=== PATIENT | male | born 2000 | race Caucasian/White ===

== ENCOUNTER 2024-07-02 08:26 | Emergency (ER) | payer OTHER, SELFPAY ==
[2024-07-02 08:33] VITALS: BP 115/78; PULSE 69; TEMP 36.5; O2SAT 98; BMI 19.5
--- NOTE | 2024-07-02 08:46 | CT_ITS ---
[address] [address] Patient Name: FRANK BARRON MRN: [id number] date: 2000 Sex: M Assigned Patient Location: ER Current Patient Location: Accession/Order Number: [id number] Exam Date: 07/02/2024 09:03 Report Date: 07/02/2024 09:29 At the request of: FAISAL CANAS Procedure: CT abdomen pelvis wo con EXAMINATION: CT abdomen pelvis wo con HISTORY: Right lower quadrant pain COMPARISON: No relevant comparison available. TECHNIQUE: Axial, Coronal, and Sagittal images were obtained without and/or with IV contrast as indicated by examination type. Dose reduction techniques were achieved by using automated exposure control and/or adjustment of mA and/or kV according to patient size and/or use of iterative reconstruction technique. FINDINGS: LUNG BASES: No visible pulmonary or pleural disease. LIVER: No enlargement, atrophy, suspicious density, or significant focal lesion. BILIARY: No dilatation or calcification. PANCREAS: No lesion, fluid collection, or abnormal duct dilatation. SPLEEN: No enlargement or focal lesion. ADRENALS: No mass or enlargement. KIDNEYS: No mass, obstruction, or calcification. BOWEL/MESENTERY: Trace amount of free fluid versus edematous appearance of the fat within the right paracolic gutter. No visible mass, obstruction, or bowel wall thickening. AORTA/VASCULAR: No aneurysm or dissection. RETROPERITONEUM: No mass or adenopathy. LYMPH NODES: No adenopathy. URINARY BLADDER: No visible focal wall thickening, lesion, or calculus. PELVIC ORGANS: No visible mass. Pelvic organs appropriate for patient age. ABDOMINAL WALL: No mass or hernia. BONES: Small separate ossification along anterior superior margin of L4 vertebral body (limbus vertebrae-normal variant). OTHER: Negative. CT/CT abdomen pelvis wo con IMPRESSION: 1. Trace amount of edema within right paracolic gutter. 2. No bowel obstruction or suspicious findings of the bowel. Evaluation is limited by lack of IV and oral contrast. Electronically authenticated by: EDGARDO REYNOLDS Date: 07/02/2024 09:29
[2024-07-02 08:54] LABS: Basophils Percent Auto 0.3 % (0.2-2.0); Eosinophils Percent Auto 0.1 % (0.9-7.0); Hematocrit 42.8 % (42.0-54.0); Hemoglobin 15.1 g/dL (14.0-18.0); Immature Granulocytes Abs Auto 0.04 10^3/uL (0.00-0.03); Immature Granulocytes Pct Auto 0.3 % (0.0-0.5); Lymphocytes Absolute Auto 1.3 10^3/uL (1.2-3.8); Lymphocytes Percent Auto 10.9 % (20.5-60.0); Mean Corpuscular HGB Conc 35.3 g/dL (29.9-35.2); Mean Corpuscular Hemoglobin 30.7 pg (25.9-34.0); Mean Platelet Volume 9.5 fL (9.5-13.5); Monocytes Absolute Auto 0.6 10^3/uL (0.3-0.8); Monocytes Percent Auto 5.3 % (1.7-12.0); Neutrophils Absolute Auto 9.6 10^3/uL (1.4-6.5); Neutrophils Percent Auto 83.1 % (43.0-75.0); Platelet Count 239 10^3/uL (150-450); Red Blood Count 4.92 10^6/uL (4.70-6.10); Red Cell Distribution Width 12.5 % (11.0-15.0); White Blood Count 11.5 10^3/uL (4.0-11.0)
[2024-07-02] MEDS: KETOROLAC TROMETHAMINE 30 MG/ML VIAL 15 MG IM (08:54)
[2024-07-02] MEDS: ONDANSETRON PF 4 MG/2 ML VIAL IV ×2 (08:55→12:32)
[2024-07-02] MEDS: FAMOTIDINE/PF 20 MG/2 ML VIAL IV (08:55)
[2024-07-02] MEDS: 0.9 % SODIUM CHLORIDE 1,000 ML 1000 ML IV (08:58)
[2024-07-02 09:18] LABS: Alanine Aminotransferase 25 U/L (16-63); Albumin Globulin Ratio 1.5; Albumin Level 4.4 g/dL (3.4-5.0); Alkaline Phosphatase 47 U/L (46-116); Anion Gap 15.5; Aspartate Amino Transferase 17 U/L (15-37); BUN Creatinine Ratio 17.3; Bilirubin Total 0.9 mg/dL (0.2-1.0); Calcium 9.5 mg/dL (8.5-10.1); Carbon Dioxide 25.2 mmol/L (21.0-32.0); Chloride 104 mmol/L (98-107); Estimated GFR (African America >60 (>=60); Estimated GFR (Non-African Ame >60 (>=60); Glucose 140 mg/dL (74-106); Magnesium 1.7 mg/dL (1.8-2.4); Potassium 3.7 mmol/L (3.5-5.1); Sodium 141 mmol/L (136-145); Total Protein 7.4 g/dL (6.4-8.2)
--- NOTE | 2024-07-02 10:14 | ED_ITS ---
HPI HPI - General Adult General Chief complaint: Nausea/Vomiting/Diarrhea Stated complaint: ABDOMINAL PAIN/ VOMITTING Time Seen by Provider: 07/02/24 08:43 Source: patient Mode of arrival: walk-in Limitations: no limitations History of Present Illness HPI narrative: The patient is coming to us with a 24 hours history of nausea vomiting and abdominal pain mostly in the right lower quadrant although associated with diarrhea, he mentioned that this pain started after he ate some fair food, he mentioned that he went home he started nausea vomiting and diarrhea has been to the bathroom at least once per hour since the morning He denies any blood in her stool or blood in vomiting He also denies any other complaints The patient pain and the right lower quadrant although he does have pain all over the abdomen as well but at the bedside the patient is worried about appendicitis Related Data Home Medications ?Medication ?Instructions ?Recorded ?Confirmed omeprazole 20 mg capsule,delayed 20 mg PO DAILY 07/02/24 07/02/24 release Previous Rx's ?Medication ?Instructions ?Recorded famotidine 20 mg tablet (Pepcid) 20 mg PO BID #10 tabs 07/02/24 ondansetron 4 mg disintegrating 4 mg PO Q8H PRN nausea and 07/02/24 tablet vomiting 3 days #9 tabs Allergies Allergy/AdvReac Type Severity Reaction Status Date / Time No Known Drug Allergies Allergy Verified 07/02/24 08:37 Opioid HPI Opioid Management Most Recent Opioid Data: Last Pain Scale 8 07/02/24 08:54 Last MAR Pain Assessment 07/02/24 08:54 Review of Systems ROS Status of ROS 10 or more systems reviewed and unremark able except as noted in history and below [facility] Medical History (Updated 07/02/24 @ 12:18 by Chastity De Jesus MD) Lactose intolerance ?E73.9 - Lactose intolerance, unspecified (ICD-10) History of esophageal reflux ?Z87.19 - Personal history of other diseases of the digestive system (ICD-10) Exam Narrative Exam Narrative: Nurses notes and vital signs reviewed and patient is not hypoxic. General: Well-appearing and in no apparent distress. Skin: Warm, dry, no pallor noted. No rash. Head: Normocephalic, atraumatic. Neck: Supple, non-tender. Eye: Pupils are equal, round and EOMI. No scleral icterus. Ears, Nose, Mouth, and Throat: TM are clear, no nasal mucosal hypertrophy. Oral mucosa is moist, no posterior oropharynx erythema, uvula is mid-line Cardiovascular: Regular Rate and Rhythm without murmur, gallop or rub. Respiratory: No accessory muscle use or respiratory distress. Lungs are clear to auscultation, no wheezing, rales or rhonchi Chest Wall: no tenderness Back: No midline thoracic or lumbar vertebral tenderness. No CVA tenderness Musculoskeletal: normal ROM, no calf or popliteal tenderness, no lower extremity edema/swelling GI: Generalized abdominal tenderness although the patient mentioned more tenderness in the right lower No tenderness to palpation. No rebound, guarding, or rigidity noted. Neurological: A&O x4. No cranial nerve dysfunction observed. No truncal ataxia. Moves all extremities. Sensation intact. Psychiatric: Cooperative and interactive. Normal mood and affect. Constitutional Vital Signs, click to edit/add: Last Vital Signs Temp 97.9 F 07/02/24 12:19 Pulse 56 L 07/02/24 12:19 Resp 16 07/02/24 12:19 BP 126/71 07/02/24 12:19 Pulse Ox 98 07/02/24 12:19 O2 Del Method Room Air 07/02/24 12:19 Course Vital Signs Vital signs: Vital Signs Temperature 97.7 F 07/02/24 08:33 Pulse Rate 69 07/02/24 08:33 Respiratory Rate 62 H 07/02/24 08:33 Blood Pressure 115/78 07/02/24 08:33 Pulse Oximetry 98 07/02/24 08:33 Temperature 97.9 F 07/02/24 12:19 Pulse Rate 56 L 07/02/24 12:19 Respiratory Rate 16 07/02/24 12:19 Blood Pressure 126/71 07/02/24 12:19 Pulse Oximetry 98 07/02/24 12:19 Oxygen Delivery Method Room Air 07/02/24 12:19 Medical Decision Making MDM Narrative Medical decision making narrative: The patient did have a negative Art and negative McBurney But the patient did had tenderness that is mostly toward the lower abdomen CBC and chemistry showed no acute significant pathology and the CAT scan was not conclusive to rule out appendicitis when trying to repeat the CAT scan with contrast the hospital had problem with the CAT scan machine and it was down I need up speaking with Dr. Isbell the radiologist and ultrasound was done to rule out appendicitis Ultrasound showed no acute pathology the patient was instructed about hydration and discharged home with supportive care with Zofran and Pepcid He also was still instructed about coming back in case of any symptoms or concerns The patient is to follow up with primary care physician in next 2-3 days or to return to the emergency department should any of the signs or symptoms worsen or new symptoms develop. The patient agrees with the following Diagnosis and Treatment plan and the patient will be discharged home. Lab Data Labs: Lab Results 07/02/24 Range/Units 08:45 WBC 11.5 H (4.0-11.0) 10^3/uL RBC 4.92 (4.70-6.10) 10^6/uL Hgb 15.1 (14.0-18.0) g/dL Hct 42.8 (42.0-54.0) % MCV 87.0 (80.0-94.0) fL MCH 30.7 (25.9-34.0) pg MCHC 35.3 H (29.9-35.2) g/dL RDW 12.5 (11.0-15.0) % Plt Count 239 (150-450) 10^3/uL MPV 9.5 (9.5-13.5) fL Neut % (Auto) 83.1 H (43.0-75.0) % Lymph % (Auto) 10.9 L (20.5-60.0) % [place] % (Auto) 5.3 (1.7-12.0) % Eos % (Auto) 0.1 L (0.9-7.0) % Baso % (Auto) 0.3 (0.2-2.0) % Neut # (Auto) 9.6 H (1.4-6.5) 10^3/uL Lymph # (Auto) 1.3 (1.2-3.8) 10^3/uL [place] # (Auto) 0.6 (0.3-0.8) 10^3/uL Eos # (Auto) 0.0 (0.0-0.7) 10^3/uL Baso # (Auto) 0.0 (0.0-0.1) 10^3/uL Abs Immat Gran (auto) 0.04 H (0.00-0.03) 10^3/uL Imm/Tot Granulo (auto) 0.3 (0.0-0.5) % Sodium 141 (136-145) mmol/L Potassium 3.7 (3.5-5.1) mmol/L Chloride 104 (98-107) mmol/L Carbon Dioxide 25.2 (21.0-32.0) mmol/L Anion Gap 15.5 BUN 18.0 (7.0-18.0) mg/dL Creatinine 1.04 (0.70-1.30) mg/dL Est GFR ( Amer) >60 (>=60) Est GFR (Non-Af Amer) >60 (>=60) BUN/Creatinine Ratio 17.3 Glucose 140 H (74-106) mg/dL Calcium 9.5 (8.5-10.1) mg/dL Magnesium 1.7 L (1.8-2.4) mg/dL Total Bilirubin 0.9 (0.2-1.0) mg/dL AST 17 (15-37) U/L ALT 25 (16-63) U/L Alkaline Phosphatase 47 (46-116) U/L Total Protein 7.4 (6.4-8.2) g/dL Albumin 4.4 (3.4-5.0) g/dL Globulin 3.0 g/dL Albumin/Globulin Ratio 1.5 Discharge Plan Discharge Stand Alone Forms: Portal Instructions Chief Complaint: Nausea/Vomiting/Diarrhea Clinical Impression: Gastroenteritis Patient Disposition: Home, Self-Care Time of Disposition Decision: 12:18 Condition: Good Prescriptions / Home Meds: New famotidine [Pepcid] 20 mg tablet 20 mg PO BID Qty: 10 0RF ondansetron 4 mg tablet,disintegrating 4 mg PO Q8H PRN (Reason: nausea and vomiting) 3 Days Qty: 9 0RF No Action omeprazole 20 mg capsule,delayed release(DR/EC) 20 mg PO DAILY Print Language: Portuguese Instructions: Gastroenteritis (ED) Referrals: YUNIOR BABIN [Primary Care Provider] - 1 week Discharge Date/Time: 07/02/24 12:47
--- NOTE | 2024-07-02 10:46 | US_ITS ---
[facility] [place] [id number] Patient Name: FRANK BARRON MRN: [id number] date: 2000 Sex: M Assigned Patient Location: ER Current Patient Location: ER Accession/Order Number: [id number] Exam Date: 07/02/2024 10:55 Report Date: 07/02/2024 12:01 At the request of: FAISAL CANAS Procedure: US appendix EXAM: US appendix HISTORY: RLQ pain r/o appendicitis COMPARISON: CT abdomen pelvis 07/02/2024 TECHNIQUE: Percutaneous ultrasound of right lower quadrant. FINDINGS: What is thought to be the appendix measures 5 x 6 mm in diameter and 20 mm in length. No wall thickening, free fluid, or lymphadenopathy. Peristalsing bowel. US/US appendix IMPRESSION: 1. No ultrasound evidence of acute appendicitis. Electronically authenticated by: EDGARDO REYNOLDS Date: 07/02/2024 12:01
[2024-07-02] MEDS: MAGNESIUM SULFATE/D5W 1 GM/100 ML PREMIX IV (10:54)
[2024-07-02] MEDS: PROCHLORPERAZINE 10 MG/2 ML VIAL IV (10:54)
[2024-07-02 12:19] VITALS: BP 126/71; PULSE 56; TEMP 36.6; O2SAT 98
== END 2024-07-02 12:47 | disposition home or self-care (01) ==
PROVIDERS: Emergency Provider Emergency Medicine; PCP Family Medicine
DX: K52.9 Noninfective gastroenteritis and colitis, unspecified (principal)
CPT/HCPCS: 36415; 74176; 76705; 80053; 83735; 85025; 96361; 96365; 96372; 96375; 96376; 99285; J0780; J1885; J2405; J3475